=== PATIENT | female | born 1965 | race American Indian/Alaskan Native ===

== ENCOUNTER 2016-09-14 12:43 | Emergency (ER) | payer SELFPAY ==
--- NOTE | 2016-09-14 13:39 | XRay Report ---
LEFT KNEE, 3 views: History: Left knee pain after fall. Left knee arthroplasty changes are evident. The hardware appears well applied. There is no evidence for fracture or dislocation. The soft tissues are unremarkable. IMPRESSION: No acute process.
[2016-09-14] MEDS ORDERED: TYLENOL #3 PO ONE (17:01)
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
[2016-09-14 17:28] VITALS: BP 146/91
== END 2016-09-14 17:30 | disposition home or self-care (01) ==
LOC: ED 12:43
DX: S83.92XA Sprain of unspecified site of left knee, initial encounter (principal); M25.511 Pain in right shoulder; K08.89 Other specified disorders of teeth and supporting structures; J45.909 Unspecified asthma, uncomplicated; Z90.710 Acquired absence of both cervix and uterus; Z96.653 Presence of artificial knee joint, bilateral; Z79.82 Long term (current) use of aspirin; V87.8XXA Person injured in other specified noncollision transport accidents involving motor vehicle (traffic), initial encounter; Y93.89 Activity, other specified; Y92.89 Other specified places as the place of occurrence of the external cause; Y99.8 Other external cause status
CPT/HCPCS: 99283